=== PATIENT | male | born 1955 | race Caucasian/White ===

== ENCOUNTER 2017-02-14 08:24 | Day surgery (SDC) | payer MEDICAID ==
[2017-02-14] MEDS ORDERED: Lactated Ringer's 500 ML IV ONE (10:31)
[2017-02-14] MEDS ORDERED: Propofol 10 mg/ml Inj (20 ML) ONE (12:11)
[2017-02-14 13:04] VITALS: BP 101/57; PULSE 69; RESP 17; TEMP 96.9; O2SAT 99
== END 2017-02-14 13:10 | disposition home or self-care (01) ==
LOC: H.ENDO 08:24
PROVIDERS: ATTEND Internal Medicine Gastroenterology
DX: Z12.11 Encounter for screening for malignant neoplasm of colon (principal); K64.8 Other hemorrhoids
CPT/HCPCS: 45378; 88305; J2704; J7120